=== PATIENT | female | born 1995 ===

== ENCOUNTER 2018-12-26 01:43 | Emergency (ER) | payer SELFPAY ==
[2018-12-26 02:03] VITALS: RESP 16; O2SAT 97
[2018-12-26] MEDS ORDERED: Sodium Chloride 0.9% 1,000 ML IV STA (02:17)
[2018-12-26] MEDS ORDERED: Sodium Chloride 0.9% 1,000 ML ONE (02:40)
[2018-12-26 02:45] LABS: BASO % 0.3 % (0.0-2.0); EOS # 0.2 K/uL (0.0-0.7); EOS % 2.1 % (0.0-4.0); LYMPH # 2.3 K/uL (1.0-4.3); LYMPH % 31.1 % (20.0-40.0); MEAN CELL VOLUME 82.1 fL (81.0-99.0); MEAN CORPUSCULAR HEMOGLOBIN 26.3 pg (27.0-31.0); MEAN PLATELET VOLUME 8.2 fL (7.2-11.7); MONO # 0.6 K/uL (0.0-0.8); MONO % 7.7 % (0.0-10.0); NEUT # 4.3 K/uL (1.8-7.0); NEUT % 58.8 % (50.0-75.0); RBC 4.56 Mil/uL (3.80-5.20); RED CELL DISTRIBUTION WIDTH 15.6 % (11.5-14.5); WHITE BLOOD COUNT 7.4 K/uL (4.8-10.8)
[2018-12-26 02:50] LABS: HCG,QUALITATIVE URINE NEGATIVE (NEGATIVE); SQUAMOUS EPITHIAL 6 /hpf (0-5); URINE BILIRUBIN NEGATIVE (NEGATIVE); URINE BLOOD NEGATIVE (NEGATIVE); URINE CLARITY Clear (Clear); URINE COLOR Yellow (YELLOW); URINE GLUCOSE (UA) NORMAL (Normal); URINE LEUKOCYTE ESTERASE NEG Leu/uL (Negative); URINE PROTEIN NEGATIVE (NEGATIVE); URINE UROBILINOGEN NORMAL mg/dL (0.2-1.0)
[2018-12-26 02:53] LABS: ALB/GLOB RATIO 1.5 (1.0-2.1); ALBUMIN 4.1 g/dL (3.5-5.0); ALT/SGPT 24 U/L (9-52); AST/SGOT 17 U/L (14-36); BLOOD UREA NITROGEN 16 mg/dL (7-17); CALCIUM 8.8 mg/dl (8.6-10.4); GFR NON-AFRICAN AMERICAN > 60; LIPASE 46 U/L (23-300)
[2018-12-26 05:02] VITALS: BP 106/65; PULSE 68; TEMP 97.9
--- NOTE | 2018-12-26 05:02 | C.PDOC ---
History Of Present Illness 23 year old female presents to the emergency department with complaints of epigastric pain since yesterday. Patient reports feeling nauseous. She offers no other complaints at this time. Time Seen by Provider: 12/26/18 02:02 Chief Complaint (Nursing): Abdominal Pain History Per: Patient History/Exam Limitations: no limitations Onset/Duration Of Symptoms: Days (1) Current Symptoms Are (Timing): Still Present Location Of Pain/Discomfort: Epigastric Quality Of Discomfort: "Pain" Associated Symptoms: Nausea Past Medical History Reviewed: Historical Data, Nursing Documentation, Vital Signs Vital Signs: Last Vital Signs Temp 97.5 F L 12/26/18 01:58 Pulse 78 12/26/18 01:58 Resp 16 12/26/18 01:58 BP 134/83 12/26/18 01:58 Pulse Ox 97 12/26/18 01:58 - Medical History PMH: Migraine Denies: Chronic Kidney Disease Surgical History: No Surg Hx Family History: States: No Known Family Hx - Social History Hx Alcohol Use: Yes Hx Substance Use: No Review Of Systems Except As Marked, All Systems Reviewed And Found Negative. Constitutional: Negative for: Fever, Chills Respiratory: Negative for: Cough, Shortness of Breath Gastrointestinal: Positive for: Nausea, Abdominal Pain. Negative for: Vomiting, Diarrhea Physical Exam - Physical Exam Appears: Non-toxic, No Acute Distress Skin: Normal Color, Warm, Dry Head: Atraumatic, Normacephalic Eye(s): bilateral: Normal Inspection, PERRL, EOMI Oral Mucosa: Moist Neck: Normal, Supple Cardiovascular: Rhythm Regular, No Murmur Respiratory: Normal Breath Sounds, No Rales, No Rhonchi, No Wheezing Gastrointestinal/Abdominal: Soft, Tenderness (RUQ, epigastric tenderness), No Guarding, No Rebound Extremity: Normal ROM Neurological/Psych: Oriented x3, Normal Speech, Normal Cognition ED Course And Treatment - Laboratory Results Result Diagrams: 12/26/18 02:39 12/26/18 02:39 Lab Results: Total Bilirubin 0.3 mg/dL (0.2-1.3) 12/26/18 02:39 AST 17 U/L (14-36) 12/26/18 02:39 ALT 24 U/L (9-52) 12/26/18 02:39 Alkaline Phosphatase 93 U/L (38-126) 12/26/18 02:39 Total Protein 7.0 g/dL (6.3-8.3) 12/26/18 02:39 Albumin 4.1 g/dL (3.5-5.0) 12/26/18 02:39 Globulin 2.8 gm/dL (2.2-3.9) 12/26/18 02:39 Albumin/Globulin Ratio 1.5 (1.0-2.1) 12/26/18 02:39 Lipase 46 U/L (23-300) 12/26/18 02:39 Urine Color Yellow (YELLOW) 12/26/18 02:39 Urine Clarity Clear (Clear) 12/26/18 02:39 Urine pH 5.0 (5.0-8.0) 12/26/18 02:39 Ur Specific Mclean 1.019 (1.003-1.030) 12/26/18 02:39 Urine Protein Negative mg/dL (NEGATIVE) 12/26/18 02:39 Urine Glucose (UA) Normal mg/dL (Normal) 12/26/18 02:39 Urine Ketones Negative mg/dL (NEGATIVE) 12/26/18 02:39 Urine Blood Negative (NEGATIVE) 12/26/18 02:39 Urine Nitrate Negative (NEGATIVE) 12/26/18 02:39 Urine Bilirubin Negative (NEGATIVE) 12/26/18 02:39 Urine Urobilinogen Normal mg/dL (0.2-1.0) 12/26/18 02:39 Ur Leukocyte Esterase Neg Joaquin/uL (Negative) 12/26/18 02:39 Urine WBC (Auto) 1 /hpf (0-5) 12/26/18 02:39 Urine RBC (Auto) < 1 /hpf (0-3) 12/26/18 02:39 Ur Squamous Epith Cells 6 /hpf (0-5) H 12/26/18 02:39 Urine HCG, Qual Negative (NEGATIVE) 12/26/18 02:39 Urine HCG, Qual Negative (NEGATIVE) 12/26/18 02:39 O2 Sat by Pulse Oximetry: 97 (RA) Pulse Ox Interpretation: Normal - CT Scan/US RUQ US Other Rad Studies (CT/US): Read By Radiologist, Radiology Report Reviewed CT/US Interpretation: EXAM: US Abdomen, Right Upper Quadrant. CLINICAL HISTORY: RUQ PAIN. TECHNIQUE: Right upper quadrant sonography performed with image documentation. COMPARISON: None provided. FINDINGS: LIVER: Within normal limits in size and echogenicity. No mass. GALLBLADDER: The gallbladder appears within normal limits although not fully distended. No gallbladder wall thickening or pericholecystic fluid. COMMON BILE DUCT: Within normal limits in size. 4 mm. PANCREAS: The visualized pancreas appears within normal limits. The distal pancreas is obscured by bowel gas. RIGHT KIDNEY: Unremarkable. Normal renal contours. No renal mass or calculus. No hydronephrosis. IMPRESSION: Unremarkable right upper quadrant ultrasound. . Electronically signed on Dec 26, 2018 5:08:43 AM EST by: Mingo Haile M.D., HELEN Certified By ABR & CBC[facility]. Fellowship Trained MRI and CT Specialist Progress Note: Plan: Chemistry. CBC. Protonix 40mg IVP. NaCl IV Fluids. Zofran 4mg IVP. HCG Qualitative Urine. Urinalysis. US Abdomen. On re- evaluation feels better, abdomen is soft and not tender. Patient stable to be d/c home, instructed to return to ED if feel worse. Disposition - Disposition Disposition: HOME/ ROUTINE Disposition Time: 05:25 Condition: STABLE Additional Instructions: Follow up with PMD within 1-2 days. Return to ED immediately if feel worse. Prescriptions: Dicyclomine [Bentyl] 20 mg PO TID #30 tab Ondansetron ODT [Zofran ODT] 4 mg PO .Q4-6H PRN #20 odt PRN Reason: Nausea/Vomiting Instructions: Acute Abdomen (Belly Pain), Adult (DC) Forms: [facility] (Tongan) - Clinical Impression Clinical Impression: Abdominal pain - PA / ONLINE CONTENT EDITOR / Resident Statement MD/DO has reviewed & agrees with the documentation as recorded. - Scribe Statement The provider has reviewed the documentation as recorded by the Scribe (Kuldip Enciso) All medical record entries made by the Scribe were at my direction and personally dictated by me. I have reviewed the chart and agree that the record accurately reflects my personal performance of the history, physical exam, medical decision making, and the department course for this patient. I have also personally directed, reviewed, and agree with the discharge instructions and disposition.
--- NOTE | 2018-12-26 10:53 | US ---
Date of service: 12/26/2018 HISTORY: RUQ COMPARISON: None. TECHNIQUE: Sonographic evaluation of the right upper quadrant of the abdomen. FINDINGS: LIVER: Measures 14.5 cm in length. Heterogeneous increased echogenicity of the liver parenchyma. No mass. No intrahepatic bile duct dilatation. GALLBLADDER: The gallbladder is contracted. No gallstones. COMMON BILE DUCT: Measures 5.2 mm. No stones. No dilatation. PANCREAS: Unremarkable as visualized. No mass. No ductal dilatation. RIGHT KIDNEY: Measures 11.3 x 4.6 x 4.9 cm in length. Normal echogenicity. No calculus, mass, or hydronephrosis. There is a cyst seen at the lower pole of the right kidney measures 1.3 x 1.3 x 2.1 centimeter. AORTA: No aneurysmal dilatation. IVC: Unremarkable. OTHER FINDINGS: None . IMPRESSION: The gallbladder is contracted. No evidence of cholelithiasis or cholecystitis. Mild heterogeneous increased echogenicity of liver.
== END 2018-12-26 05:34 | disposition home or self-care (01) ==
LOC: C.ER 01:43
DX: R10.13 Epigastric pain (principal)
CPT/HCPCS: 76705; 80053; 81001; 81025; 83690; 84703; 85025; 96374; 96375; 99285; C9113; J2405; J7030